=== PATIENT | male | born 1995 | race Caucasian/White ===

== ENCOUNTER 2017-05-17 13:30 | Emergency (ER) | payer SELFPAY ==
--- NOTE | 2017-05-17 13:53 | ER Report ---
History and Physical Time Seen By MD: 13:50 Hx. of Stated Complaint: 1CM LAC TO BASE OF RIGHT PINKY. CUT IT LAST NIGHT WITH A KNIFE WHILE CUTTING LIMES HPI/ROS CHIEF COMPLAINT: Laceration HISTORY OF PRESENT ILLNESS: 21-year-old male patient presents to emergency room with complaint of laceration to the right second finger. Patient states that he was cutting limes last night. Patient states that he cut himself. He states he was going to use clear, however he was unable to get the edges approximated. Patient states he is unsure when his last tetanus shot was. He denies having any fevers, chills, nausea, vomiting or diarrhea. Patient denies any numbness tingling to the finger. Allergies: Coded Allergies: UNABLE TO OBTAIN (Unverified , 05/17/17) UNSURE OF WHICH CILLYN Home Meds Active Scripts Cephalexin 500 Mg Tab (KEFLEX 500 MG TAB) 500 Mg Tablet, 500 MG PO Q6H, #20 TAB Prov:ARLENNNAMDI FIXTURE DESIGNER 05/17/17 Past Medical/Surgical History Patient has a past medical history of alcohol use, marijuana use. Patient has no surgical history. Reviewed Nurses Notes: Yes Hx Substance Use Disorder: Yes (MARAJUANA) Hx Alcohol Use: Yes (OCCATIONAL) Constitutional Vital Sign - Last 24 Hours 05/17/17 05/17/17 13:34 14:10 Temp 98.1 Pulse 94 76 Resp 14 14 B/P (MAP) 141/94 110/76 (87) Pulse Ox 97 97 O2 Delivery Room Air Room Air Physical Exam General appearance: Alert no distress. Respiratory: Chest is non tender, lungs are clear to auscultation. Cardiac: Regular rate and rhythm Skin: Patient has superficial laceration to the right second finger, no difficulty with movement or strength. DIFFERENTIAL DIAGNOSIS: After history and physical exam differential diagnosis was considered for laceration Medical Decision Making ED Course/Re-evaluation ED Course Patient was admitted to exam room, history and physical were obtained. Differential diagnoses were considered. On examination patient does have laceration to right index finger, does appear to be superficial. Dermabond was applied to protect the area. We'll go ahead and place patient on Keflex. Patient was unsure of his allergies, I did call and speak with his pharmacy back home. He had been on Omnicef in 2005 as well as amoxicillin more recently. Patient is to limit his activity by pain, monitor and look for signs of infection. He is return to emergency room if condition worsens. Patient verbalized understanding and agreement. Procedure: Laceration repair with Dermabond Verbal consent was obtained from the patient. The 1 cm laceration on the right second finger. The wound was scrubbed and explored to its base with a gloved finger. There were no deep structures involved. No tendon injury was identified. The wound was repaired with Dermabond. The procedure was performed by myself. Decision to Disposition Date: May 17, 2017 Decision to Disposition Time: 13:53 Depart Departure Latest Vital Signs Vital Signs Date Time Temp Pulse Resp B/P (MAP) Pulse Ox O2 Delivery O2 Flow Rate FiO2 05/17/17 14:10 76 14 110/76 (87) 97 Room Air 05/17/17 13:34 98.1 Impression: Primary Impression: Laceration Condition: Improved Disposition: HOME OR SELF-CARE New Scripts Cephalexin 500 Mg Tab (KEFLEX 500 MG TAB) 500 Mg Tablet 500 MG PO Q6H, #20 TAB Prov: NNAMDI MCKINLEY 05/17/17 Patient Instructions: Finger Laceration (ED) Additional Instructions: Keep wound dry for 48 hours. Monitor for signs of infection; redness, swelling, heat, discharge, increasing pain or red streaking. Take Tylenol or Ibuprofen as needed for pain. Return to the ER with any concerns. NNAMDI MCKINLEY May 17, 2017 13:53
[2017-05-17] MEDS ORDERED: DIPHTH/TETANUS/ACEL. PERTUSSIS IM ONLY ONE (13:55)
[2017-05-17] MEDS ORDERED: CEPH500T7 PO (13:59)
[2017-05-17 14:10] VITALS: BP 110/76
== END 2017-05-17 14:13 | disposition home or self-care (01) ==
LOC: ER 13:47
DX: S61.216A Laceration without foreign body of right little finger without damage to nail, initial encounter (principal); W26.0XXA Contact with knife, initial encounter
CPT/HCPCS: 90471; 90715; 99282

== ENCOUNTER 2018-02-27 14:23 | Emergency (ER) | payer SELFPAY ==
[~2018-02-27 14:23] MED LIST: CEPH500T7 PO
--- NOTE | 2018-02-27 14:28 | ER Report ---
History and Physical Time Seen By MD: 14:28 HPI/ROS CHIEF COMPLAINT: Finger laceration HISTORY OF PRESENT ILLNESS: 22-year-old male patient presents to emergency room with complaint of laceration to the right second and third fingers. Patient states that he was taking trash out and cut his fingers on something. Patient is unsure what he cut himself on. Patient denies having any numbness or tingling. Patient has no weakness with flexion or extension. Patient able to move his fingers without any difficulties. Patient did apply pressure, after he noticed that he was bleeding. Allergies: Coded Allergies: UNABLE TO OBTAIN (Unverified , 05/17/17) UNSURE OF WHICH CILLYN Home Meds Active Scripts Sulfamethoxazole/Trimet 800-160 Mg Tab (BACTRIM DS TABLET) 1 Each Tablet, 1 TAB PO Q12H, #10 TAB Prov:NNAMDI MCKINLEY SOCK LINER 02/27/18 Discontinued Scripts Cephalexin 500 Mg Tab (KEFLEX 500 MG TAB) 500 Mg Tablet, 500 MG PO Q6H, #20 TAB Prov:NNAMDI MCKINLEY SOCK LINER 05/17/17 Past Medical/Surgical History Patient has a past medical history of marijuana use, occasional alcohol use. Patient denies any surgical history. Reviewed Nurses Notes: Yes Hx Substance Use Disorder: Yes (MARAJUANA) Hx Alcohol Use: Yes (OCCATIONAL) Constitutional Vital Sign - Last 24 Hours 02/27/18 14:26 Temp 98.9 Pulse 110 Resp 20 B/P (MAP) 139/98 Pulse Ox 94 O2 Delivery Room Air Physical Exam General appearance: Alert no distress. Respiratory: Chest is non tender, lungs are clear to auscultation. Cardiac: Regular rate and rhythm. Skin: Patient has laceration to left second and third fingers, does go into the subcutaneous tissue. There is no obvious tendon injury. Patient has good strength with flexion and extension. DIFFERENTIAL DIAGNOSIS: After history and physical exam differential diagnosis was considered for laceration. Medical Decision Making ED Course/Re-evaluation ED Course Patient was admitted and examined, history and physical were obtained. Differential diagnoses were considered. On examination patient has a 2 cm and a 3 cm laceration to the left index and third finger. Patient does have bleeding. The fingers were anesthetized, cleaned and repaired described below. Patient tolerated procedure well. Patient will be discharged home. He is to follow-up with his primary care provider in 7-10 days to get the sutures removed. He is to take Tylenol or ibuprofen as he for pain. He is to monitor for signs of infection. We will place him on Bactrim DS one tab by mouth twice a day 5 days. Patient is to return to emergency room with any concerns. Procedure: Laceration repair. Verbal consent was obtained from the patient. The 2 and 3 cm lacerations on the left second and third finger was anesthetized in the usual fashion. The wound w as scrubbed, draped and explored to its base with a gloved finger. There were no deep structures involved. No tendon injury was identified. The wound was repaired with 19 simple interrupted sutures using 5-0 Prolene material. The wound repair was simple. The procedure was performed by myself. Decision to Disposition Date: Feb 27, 2018 Decision to Disposition Time: 15:33 Depart Departure Latest Vital Signs Vital Signs Date Time Temp Pulse Resp B/P (MAP) Pulse Ox O2 Delivery O2 Flow Rate FiO2 02/27/18 14:26 98.9 110 20 139/98 94 Room Air Impression: Primary Impression: Laceration Condition: Improved Disposition: HOME OR SELF-CARE New Scripts Sulfamethoxazole/Trimet 800-160 Mg Tab (BACTRIM DS TABLET) 1 Each Tablet 1 TAB PO Q12H, #10 TAB Prov: NNAMDI MCKINLEY 02/27/18 Patient Instructions: Finger Laceration (ED) Additional Instructions: Keep wound dry for 48 hours. Follow up with your primary care provider in the next 7-10 days to have sutures removed. Monitor for signs of infection; redness, swelling, heat, discharge, increasing pain or red streaking. Take Tylenol or Ibuprofen as needed for pain. Return to the ER with any concerns. You may change dressing as needed. NNAMDI MCKINLEY Feb 27, 2018 14:28
[2018-02-27 15:30] VITALS: BP 138/84
[2018-02-27] MEDS ORDERED: SULF-198 PO (15:32)
== END 2018-02-27 15:46 | disposition home or self-care (01) ==
LOC: ER 14:29
DX: S61.212A Laceration without foreign body of right middle finger without damage to nail, initial encounter (principal); S61.214A Laceration without foreign body of right ring finger without damage to nail, initial encounter
CPT/HCPCS: 12002; 99283; L1830